=== PATIENT | female | born 2000 | race African-American/Black ===

== ENCOUNTER 2024-11-13 11:10 | Emergency (ER) | payer MEDICAID ==
[~2024-11-13] VITALS: Ht 165.1 cm; Wt 60.0 kg
[2024-11-13 11:13] VITALS: O2SAT 99
[2024-11-13 11:50] LABS: CLARITY URINE CLEAR (CLEAR); COLOR URINE YELLOW (YELLOW); GLUCOSE URINE NEGATIVE (NEGATIVE); KETONES URINE 2+ (NEGATIVE); LEUKOCYTE ESTERASE URINE TRACE (NEGATIVE); NITRITE URINE NEGATIVE (NEGATIVE); OCCULT BLOOD URINE NEGATIVE (NEGATIVE); PROTEIN URINE NEGATIVE (NEGATIVE); SPECIFIC GRAVITY URINE 1.022 (1.005-1.030)
[2024-11-13] MEDS ORDERED: MORPHINE SULFATE 2 MG/ML INJ (NOT FOR IM USE) IV ONE (12:00)
[2024-11-13] MEDS ORDERED: ONDANSETRON HCL 4MG/2ML INJ IV ONE (12:00)
[2024-11-13 12:25] LABS: BACTERIA URINE 1+; RBC URINE 0-2 /hpf (0-2); SQUAMOUS EPITHELIAL CELL URINE 2+ /lpf (RARE/1+); YEAST URINE NONE SEEN
[2024-11-13 12:31] LABS: BASOPHILS % 0.2 % (0.0-2.0); EOSINOPHILS % 0.4 % (0.0-5.0); HEMATOCRIT. 41.9 % (36.0-48.0); HEMOGLOBIN. 13.9 g/dL (12.0-16.0); LYMPHOCYTES % 16.1 % (20.0-50.0); MEAN CORPUSCULAR HEMOGLOBIN 29.7 pg (28.0-32.0); MEAN CORPUSCULAR HGB CONC 33.1 g/dL (31.0-37.0); MEAN CORPUSCULAR VOLUME 89.8 fL (81.0-99.0); MEAN PLATELET VOLUME 8.1 fl (7.4-10.4); MONOCYTES % 6.9 % (2.0-8.0); NEUTROPHILS % 76.4 % (40.0-76.0); PLATELET 235 x1000/uL (130-400); RED BLOOD CELL COUNT 4.67 mill/uL (4.2-5.4); RED CELL DISTRIBUTION WIDTH 12.8 % (11.6-14.6); WHITE BLOOD COUNT 7.5 x1000/uL (4.5-11.0)
[2024-11-13 12:37] LABS: HCG SCREEN NEGATIVE
[2024-11-13 12:39] LABS: CHLORIDE 105 mEq/L (98-107); POTASSIUM 3.1 mEq/L (3.5-5.1); SODIUM 140 mEq/L (136-145)
[2024-11-13 12:40] LABS: CALCIUM 9.5 mg/dL (8.7-10.4); CARBON DIOXIDE 24 mEq/L (21-32); INR 1.1; PROTHROMBIN TIME 11.3 sec (9.6-11.0)
[2024-11-13 12:45] LABS: CREATININE 0.7 mg/dL (0.6-1.0); GLUCOSE 104 mg/dL (70-105); UREA NITROGEN BLOOD 9 mg/dL (9-23)
[2024-11-13 12:47] LABS: ALANINE AMINOTRANSFERASE 17 IU/L (10-49); ASPARTATE AMINOTRANSFERASE 20 IU/L (<34)
[2024-11-13] MEDS ORDERED: ONDA4TAB50 MT (13:41)
[2024-11-13] MEDS: POTASSIUM CHLORIDE 20MEQ TABLET SR PO ONE (13:45)
[2024-11-13] MEDS: HALOPERIDOL LACTATE 5MG/ML VIAL IM ONE (13:58)
[2024-11-13] MEDS: MORPHINE SULFATE 2 MG/ML INJ (NOT FOR IM USE) IV NR (13:59)
[2024-11-13] MEDS: SODIUM CHLORIDE 0.9% 1,000 ML IV ONE (13:59)
[2024-11-13] MEDS: ONDANSETRON HCL 4MG/2ML INJ IV NR (14:00)
[2024-11-13] MEDS: POTASSIUM CHLORIDE 20MEQ TABLET SR PO NR (17:23)
[2024-11-13 20:52] VITALS: BP 119/76; PULSE 68; RESP 20; TEMP 36.6; O2SAT 99
== END 2024-11-13 20:55 | disposition home or self-care (01) ==
LOC: ER 11:10
DX: R10.84 Generalized abdominal pain (principal); R11.2 Nausea with vomiting, unspecified; J45.909 Unspecified asthma, uncomplicated
CPT/HCPCS: 80048; 81003; 81025; 84703; 83690; 84450; 84460; 85025; 85610; 36415; 74176; 96361; 96372; 96374; 96375; 99285; J1630; J2405; J2270; J7030; Z7610 ×3